=== PATIENT | male | born 1980 | race Caucasian/White ===

== ENCOUNTER 2017-09-08 23:54 | Emergency (ER) | payer OTHER ==
[~2017-09-08] VITALS: Ht 170.2 cm; Wt 65.6 kg
[2017-09-09] MEDS ORDERED: XANAX0.25 MG PO (01:53)
[2017-09-09 02:07] VITALS: BP 138/74
== END 2017-09-09 02:07 | disposition home or self-care (01) ==
LOC: EME 23:54
DX: F41.9 Anxiety disorder, unspecified (principal); F17.200 Nicotine dependence, unspecified, uncomplicated; Z88.0 Allergy status to penicillin
CPT/HCPCS: 99281; 99284